=== PATIENT | female | born 1980 | race Caucasian/White ===

== ENCOUNTER 2018-02-02 12:54 | Emergency (ER) | payer OTHER ==
[~2018-02-02] VITALS: Ht 172.7 cm; Wt 77.1 kg
[2018-02-02 14:00] LABS: Source, Urine Clean Catch
[2018-02-02 14:02] LABS: Appearance, Urine Clear (Clear); Blood, Urine 5+ (Neg); Color, Urine Yellow (P-Yellow); Glucose Qualitative, Urine Neg (Neg); Ketones, Urine Neg (Neg); Leukocyte Esterase, Urine 3+ (Neg); Nitrite, Urine Pos (Neg); Protein, Urine 2+ (Neg); Specific Gravity, Urine 1.005 (1.003-1.022); Urobilinogen, Urine 1+ (Normal)
[2018-02-02 14:10] LABS: Bilirubin, Urine 1+ (Neg)
[2018-02-02 14:11] LABS: Red Blood Cells, Urine 0-2 /hpf (0-2); Squamous Epithelial Cells Few /hpf (Few); White Blood Cells, Urine 25-50 /hpf (0-5)
[2018-02-02 14:12] LABS: Bacteria Mod /hpf
[2018-02-02] MEDS ORDERED: ALBU90OI INH (14:24)
[2018-02-02] MEDS ORDERED: Macrobid 100 M100 MG PO (14:46)
[2018-02-02] MEDS ORDERED: Pyridium200 MG PO (14:46)
== END 2018-02-02 14:50 | disposition home or self-care (01) ==
LOC: ER 12:54
PROVIDERS: Emergency Medicine
DX: N39.0 Urinary tract infection, site not specified (principal); Z87.891 Personal history of nicotine dependence
CPT/HCPCS: 81001; 87077; 87086; 87186; 99283